=== PATIENT | female | born 1950 | race Caucasian/White ===

== ENCOUNTER 2017-10-11 10:00 | Outpatient (RCR) | payer MEDICARE, BC, SELFPAY ==
--- NOTE | 2017-09-07 10:57 | PT.OTN ---
Current Diagnoses Unspecified urinary incontinence (09/07/17) Transition note: On September 05, 2017 our therapy services consisting of Speech, Occupational, and Physical Therapy transitioned from the [employer] electronic documentation system to a new [employer] electronic documentation system.?? All documentation prior to September 05 can be found under [employer] saved data. From September 05 forward all medical record documentation will be in [employer] 6[employer]1.
--- NOTE | 2017-09-07 11:07 | PT.OTN ---
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 She has been getting massage and goes again on monday. Despite her back being out she notes her leakage has decreased and she is not using as many pads per day. -Patient Reported Progress Improving PT-OP-Q Treatments Start: 09/07/17 10:43 Freq: Status: Active Protocol: Activity Type Activity Date Activity User E-Sign Co-Sign Detail Recorded Client Recorded Date Recorded By Document 09/07/17 09:00 [facility] [email or web address] 09/07/17 11:04 [facility] 09/07/17 09:00 Therapeutic Exercises [Supine Exercises] 6 -Supine Exercise Name pelvic floor quick contractions with EMG biofeedback -Reps/Minutes 4 minutes 5 -Supine Exercise Name happy baby stretch -Side bilateral -Reps/Minutes 2 3 -Supine Exercise Name piriformis stretch -Side bilateral -Reps/Minutes 2 minutes each 2 -Supine Exercise Name hamstring stretch -Side bilateral -Reps/Minutes 2 min each 1 -Supine Exercise Name single knee to chest stretch -Side bilateral -Reps/Minutes 2 min Neuro Re-Education Treatment [Other Activities] 1 -Details Pelvic floor neuro re-ed in standing and supine with EMG biofeedback -Comments facilitating the pelvic floor without guarding from the abdominal wall and gluteals, supine pelvic floor long holds working on relaxed awareness of the pelvic floor and no gluteal activation. Added in urge deference technique using quick contractions of the levator ani Self-Care/Home Management Treatment [Education] -Other Education urge deference technique to help decrease sudden urge was reviewed and given to the patient [Activities] -Self-Care/Home Management Activities home exercise program and urge deference technique PT-OP-T Assessment and Plan Start: 09/07/17 10:43 Freq: Status: Active Protocol: Activity Type Activity Date Activity User E-Sign Co-Sign Detail Recorded Client Recorded Date Recorded By Document 09/07/17 09:00 [facility] [email or web address] 09/07/17 11:04 [facility] 09/07/17 09:00 Physical Therapy Assessment [Impairments] -Impairments Activity Tolerance Pain Posture Strength Tone [Assessment Summary] -Assessment Carol is noting a decrease in her symptoms of urinary incontinence. She did better today with pelvic floor endurance but had a decreased average on EMG biofeedback. She is also dealing with low back and sacral pain which has set her back a bit with strengthening her pelvic floor. I have added in stretches for the low back and sacral region and she is also getting massage which is helping. We worked today in standing and she is now able to contract her pelvic floor standing without substitution patterns. More work on the urge deference technique is needed. Physical Therapy Plan [Frequency and Duration] -Frequency of Treatment 1x/Week [Therapeutic Interventions] -Therapeutic Interventions Home Exercise Program Manual Therapy Neuromuscular Re-education Self-Care/Home Management Soft Tissue Mobilization Therapeutic Exercises -Modalities Biofeedback Hot Packs [Next Visit Focus/Plan] -Next Visit Plan work on urge deference technique and add in hip ER strengthening exercises and transverse abdominal stabilization
--- NOTE | 2017-09-14 10:41 | PT.OTN ---
Current Diagnoses Unspecified urinary incontinence (09/14/17) Physical Therapy Treatment Note PT-OP-A Visit Information Start: 09/07/17 11:04 Freq: Status: Active Protocol: Document 09/14/17 10:38 [facility] (Rec: 09/14/17 10:41 [facility] [email or web address]) Out-Patient Physical Therapy Visit Information Visit Information Visit Type Treatment Note Visit Start Time 09:00 Visit Stop Time 09:45 Visit Number 4 Number of MANAGER OF INTERNAL AUDIT Visits 0 PT-OP-C Subjective Start: 09/07/17 10:43 Freq: Status: Active Protocol: Document 09/14/17 09:59 [facility] (Rec: 09/14/17 10:01 [facility] [email or web address]) OP-PT Subjective Patient Comments Patient Comments Carol reports that she is doing better overall. She notes that Monday this past week she went all day without leaking. She has decreased her amount of pad use. PT-OP-I Pelvic Floor Start: 09/07/17 10:43 Freq: Status: Active Protocol: Document 09/07/17 09:00 [facility] (Rec: 09/07/17 11:04 [facility] [email or web address]) Pelvic Floor Assessment SEMG (uV) Baseline 2 Quick Contraction 10 10 Second Contraction 7 Recruitment Pattern Good Holding Good Stability of Hold Good SEMG Stability of Rest Fair Comments Pelvic Floor Comments Carol had a lower average pelvic floor contraction today but this was most likely due to her sacral pain these past few weeks. She actually was able to hold her contractions longer and I did talk to her about increasing her hold time for home this next week. PT-OP-Q Treatments Start: 09/07/17 10:43 Freq: Status: Active Protocol: Document 09/14/17 10:01 [facility] (Rec: 09/14/17 10:04 [facility] [email or web address]) Therapeutic Exercises Supine Exercises 7 Supine Exercise Name roll outs with theraband Resistance level 1 theraband Reps/Minutes 3 sets of 10 reps 6 Supine Exercise Name pelvic floor quick contractions with EMG biofeedback Reps/Minutes 4 minutes 5 Supine Exercise Name happy baby stretch Side bilateral Reps/Minutes 2 3 Supine Exercise Name piriformis stretch Side bilateral Reps/Minutes 2 minutes each 2 Supine Exercise Name hamstring stretch Side bilateral Reps/Minutes 2 min each 1 Supine Exercise Name single knee to chest stretch Side bilateral Reps/Minutes 2 min Neuro Re-Education Treatment Other Activities 1 Details Pelvic floor neuro re-ed in standing and supine with EMG biofeedback Comments facilitating the pelvic floor without guarding from the abdominal wall and gluteals, supine pelvic floor long holds working on relaxed awareness of the pelvic floor and no gluteal activation. Self-Care/Home Management Treatment Education Other Education urge deference reviewed and given to patient to work on at home. PT-OP-T Assessment and Plan Start: 09/07/17 10:43 Freq: Status: Active Protocol: Document 09/14/17 10:38 [facility] (Rec: 09/14/17 10:41 [facility] [email or web address]) Physical Therapy Assessment Assessment Summary Assessment Good decrease of both pad use as well as urinary incontinence symptoms. Added in roll outs today and Carol tolerated this well Physical Therapy Plan Frequency and Duration Frequency of Treatment 1x/Week Therapeutic Interventions Therapeutic Interventions Home Exercise Program Manual Therapy Neuromuscular Re-education Self-Care/Home Management Soft Tissue Mobilization Therapeutic Exercises Modalities Biofeedback Hot Packs Next Visit Focus/Plan Next Visit Plan begin standing pelvic floor exercises next visit
--- NOTE | 2017-09-21 17:13 | PT.OTN ---
Current Diagnoses Unspecified urinary incontinence (09/21/17) Physical Therapy Treatment Note PT-OP-A Visit Information Start: 09/07/17 11:04 Freq: Status: Active Protocol: Document 09/14/17 10:38 [facility] (Rec: 09/14/17 10:41 [facility] [email or web address]) Out-Patient Physical Therapy Visit Information Visit Information Visit Type Treatment Note Visit Start Time 09:00 Visit Stop Time 09:45 Visit Number 4 Number of TIMBER KILLER Visits 0 PT-OP-C Subjective Start: 09/07/17 10:43 Freq: Status: Active Protocol: Document 09/21/17 09:00 [facility] (Rec: 09/21/17 17:13 [facility] [email or web address]) OP-PT Subjective Patient Comments Patient Comments Carol reports she continues to note improvement and is not getting up at night to void. She also hasn't had any symptoms of a UTI in a long time PT-OP-I Pelvic Floor Start: 09/07/17 10:43 Freq: Status: Active Protocol: Document 09/07/17 09:00 [facility] (Rec: 09/07/17 11:04 [facility] [email or web address]) Pelvic Floor Assessment SEMG (uV) Baseline 2 Quick Contraction 10 10 Second Contraction 7 Recruitment Pattern Good Holding Good Stability of Hold Good SEMG Stability of Rest Fair Comments Pelvic Floor Comments Carol had a lower average pelvic floor contraction today but this was most likely due to her sacral pain these past few weeks. She actually was able to hold her contractions longer and I did talk to her about increasing her hold time for home this next week. PT-OP-Q Treatments Start: 09/07/17 10:43 Freq: Status: Active Protocol: Document 09/21/17 09:00 [facility] (Rec: 09/21/17 17:13 [facility] [email or web address]) Therapeutic Exercises Supine Exercises 8 Supine Exercise Name templates for eccentric control and coordination Reps/Minutes 8 min 4 Supine Exercise Name adductor squeeze with ball Side bilateral Reps/Minutes x 10 Comments hold 5 seconds 7 Supine Exercise Name roll outs with theraband Resistance level 1 theraband Reps/Minutes 3 sets of 10 reps 6 Supine Exercise Name pelvic floor quick contractions with EMG biofeedback Reps/Minutes 4 minutes 5 Supine Exercise Name happy baby stretch Side bilateral Reps/Minutes 2 Standing Exercises 2 Standing Exercise Name standing pelvic floor isolation Comments hold 5 second and rest 10 seconds 1 Standing Exercise Name sit to stand with pelvic floor engagement Reps/Minutes 10 reps PT-OP-T Assessment and Plan Start: 09/07/17 10:43 Freq: Status: Active Protocol: Document 09/21/17 09:00 [facility] (Rec: 09/21/17 17:13 [facility] [email or web address]) Physical Therapy Assessment Assessment Summary Assessment Carol tolerated all standing exercises today and no increase in low back pain symptoms. resting tone decreased to 0.0 uv on EMG biofeedback today Physical Therapy Plan Frequency and Duration Frequency of Treatment 1x/Week Plan of Care Start Date 08/17/17 Plan of Care End Date 11/15/17 Therapeutic Interventions Therapeutic Interventions Home Exercise Program Manual Therapy Neuromuscular Re-education Self-Care/Home Management Soft Tissue Mobilization Therapeutic Exercises Next Visit Focus/Plan Next Visit Plan review standing pelvic floor exercises
--- NOTE | 2017-09-28 09:54 | PT.OTN ---
Current Diagnoses Unspecified urinary incontinence (09/28/17) Physical Therapy Treatment Note PT-OP-A Visit Information Start: 09/07/17 11:04 Freq: Status: Active Protocol: Document 09/28/17 09:49 [facility] (Rec: 09/28/17 09:54 [facility] [email or web address]) Out-Patient Physical Therapy Visit Information Visit Information Visit Type Treatment Note Visit Start Time 09:00 Visit Stop Time 09:45 PT-OP-C Subjective Start: 09/07/17 10:43 Freq: Status: Active Protocol: Document 09/28/17 09:49 [facility] (Rec: 09/28/17 09:54 [facility] [email or web address]) OP-PT Subjective Patient Comments Patient Comments Carol reports she is going without a pad today for the first time. Urge deference technique has been working and she is excited with her progress Patient Reported Progress Improving PT-OP-I Pelvic Floor Start: 09/07/17 10:43 Freq: Status: Active Protocol: Document 09/07/17 09:00 [facility] (Rec: 09/07/17 11:04 [facility] [email or web address]) Pelvic Floor Assessment SEMG (uV) Baseline 2 Quick Contraction 10 10 Second Contraction 7 Recruitment Pattern Good Holding Good Stability of Hold Good SEMG Stability of Rest Fair Comments Pelvic Floor Comments Carol had a lower average pelvic floor contraction today but this was most likely due to her sacral pain these past few weeks. She actually was able to hold her contractions longer and I did talk to her about increasing her hold time for home this next week. PT-OP-Q Treatments Start: 09/07/17 10:43 Freq: Status: Active Protocol: Document 09/28/17 09:49 [facility] (Rec: 09/28/17 09:54 [facility] [email or web address]) Therapeutic Exercises Supine Exercises 9 Supine Exercise Name pelvic floor long holds Reps/Minutes 10 second hold with 10 second rest 4 Supine Exercise Name adductor squeeze with ball Side bilateral Reps/Minutes x 10 Comments hold 5 seconds 7 Supine Exercise Name roll outs with theraband Resistance level 1 theraband Reps/Minutes 3 sets of 10 reps 5 Supine Exercise Name happy baby stretch Side bilateral Reps/Minutes 2 3 Supine Exercise Name piriformis stretch Side bilateral Reps/Minutes 2 minutes each 2 Supine Exercise Name hamstring stretch Side bilateral Reps/Minutes 2 min each 1 Supine Exercise Name single knee to chest stretch Side bilateral Reps/Minutes 2 min Standing Exercises 3 Standing Exercise Name standing hip abduction Reps/Minutes 3 x 10 reps 2 Standing Exercise Name standing pelvic floor isolation Comments hold 5 second and rest 10 seconds 1 Standing Exercise Name sit to stand with pelvic floor engagement Reps/Minutes 10 reps PT-OP-T Assessment and Plan Start: 09/07/17 10:43 Freq: Status: Active Protocol: Document 09/28/17 09:49 [facility] (Rec: 09/28/17 09:54 [facility] [email or web address]) Physical Therapy Assessment Assessment Summary Assessment Excellent progress with decreased symptoms overall. Physical Therapy Plan Frequency and Duration Frequency of Treatment 1x/Week Plan of Care Start Date 08/17/17 Plan of Care End Date 11/15/17 Therapeutic Interventions Therapeutic Interventions Home Exercise Program Manual Therapy Neuromuscular Re-education Self-Care/Home Management Soft Tissue Mobilization Therapeutic Exercises Next Visit Focus/Plan Next Visit Plan Carol has 2 visits left on her referal prior to DC. Recheck pelvic floor manual assessment of strength next visit Please Sign and Return: I have reviewed this Plan of Care and certify that the skilled therapy services above are required to meet the patient???s needs. Physician Signature Date Printed Name and Credentials Clinical Instructor Signature Printed Name and Credentials
--- NOTE | 2017-10-11 12:13 | PT.OTN ---
Current Diagnoses Unspecified urinary incontinence (10/11/17) Physical Therapy Treatment Note PT-OP-A Visit Information Start: 09/07/17 11:04 Freq: Status: Active Protocol: Document 10/11/17 12:03 [facility] (Rec: 10/11/17 12:13 [facility] [email or web address]) Out-Patient Physical Therapy Visit Information Visit Information Visit Type Treatment Note Visit Start Time 09:00 Visit Stop Time 09:45 Total Visit Minutes 45 Visit Number 8 Number of WIG COMBER Visits 0 PT-OP-C Subjective Start: 09/07/17 10:43 Freq: Status: Active Protocol: Document 10/11/17 12:03 [facility] (Rec: 10/11/17 12:13 [facility] [email or web address]) OP-PT Subjective Patient Comments Patient Comments Overall Carol reports a great deal of progress with pelvic floor strengthening. She is leaking considerably less than she was. PT-OP-I Pelvic Floor Start: 09/07/17 10:43 Freq: Status: Active Protocol: Document 10/11/17 12:03 [facility] (Rec: 10/11/17 12:13 [facility] [email or web address]) Pelvic Floor Assessment SEMG (uV) Baseline 0 Quick Contraction 17.6 10 Second Contraction 8.6 Recruitment Pattern Good Relaxation Good Holding Good Stability of Hold Good SEMG Stability of Rest Good Contraction Ability Manual Muscle Testing Left 3 Manual Muscle Testing Right 4 Manual Muscle Testing Anterior 4 Manual Muscle Testing Posterior 4 Muscle Endurance (Seconds) 10 Number of Quick Contractions In 10 10 Seconds Comments Pelvic Floor Comments overall improved strength of the pelvic floor as initially Carol tested 2/5 MMT. Endurance has also improved and she is no longer substituting with her gluteals PT-OP-Q Treatments Start: 09/07/17 10:43 Freq: Status: Active Protocol: Document 10/11/17 12:03 [facility] (Rec: 10/11/17 12:13 [facility] [email or web address]) Therapeutic Exercises Supine Exercises 9 Supine Exercise Name pelvic floor long holds Reps/Minutes 10 second hold with 10 second rest 8 Supine Exercise Name templates for eccentric control and coordination Reps/Minutes 8 min 4 Supine Exercise Name adductor squeeze with ball Side bilateral Reps/Minutes x 10 Comments hold 5 seconds 7 Supine Exercise Name roll outs with theraband Resistance level 1 theraband Reps/Minutes 3 sets of 10 reps 6 Supine Exercise Name pelvic floor quick contractions with EMG biofeedback Reps/Minutes 4 minutes 5 Supine Exercise Name happy baby stretch Side bilateral Reps/Minutes 2 3 Supine Exercise Name piriformis stretch Side bilateral Reps/Minutes 2 minutes each 2 Supine Exercise Name hamstring stretch Side bilateral Reps/Minutes 2 min each 1 Supine Exercise Name single knee to chest stretch Side bilateral Reps/Minutes 2 min Standing Exercises 3 Standing Exercise Name standing hip abduction Reps/Minutes 3 x 10 reps 2 Standing Exercise Name standing pelvic floor isolation Comments hold 5 second and rest 10 seconds 1 Standing Exercise Name sit to stand with pelvic floor engagement Reps/Minutes 10 reps PT-OP-T Assessment and Plan Start: 09/07/17 10:43 Freq: Status: Active Protocol: Document 10/11/17 12:03 [facility] (Rec: 10/11/17 12:13 [facility] [email or web address]) Physical Therapy Assessment Progress Towards Goals Progress Towards Goals Goals Met Progress Comments Carol has made great overall progress. With MMT now she is 4/5 for levator ani except the left side which is 3/5. She is able to hold a contraction for 10 seconds in supine and up to 5 seconds standing. Carol has a much greater awareness of her pelvic floor and has the sensation now when she is viridiana. She is no longer waking up wet or dealing with urgency. She has some symptoms with leakage while walking but I feel this will continue to get better as she keeps working on her pelvic floor independently. She will be discharged at this time to a independent home program. Thank you for this referral Physical Therapy Plan Discharge Physical Therapy Discharge Reasons Goals Met Please Sign and Return: I have reviewed this Plan of Care and certify that the skilled therapy services above are required to meet the patient?s needs. Physician Signature Date Printed Name and Credentials Clinical Instructor Signature Printed Name and Credentials
== END 2017-10-25 16:13 ==
LOC: PHYS 10:00
PROVIDERS: Family Provider Nurse Practitioner Family; PCP Nurse Practitioner Family; Visit Provider Nurse Practitioner Family
DX: R32 Unspecified urinary incontinence (principal)
CPT/HCPCS: 97110; 97112

== ENCOUNTER → 2017-12-22 17:02 | Outpatient (CLI) | payer MEDICARE, BC, SELFPAY | PROVIDERS: Family Provider Nurse Practitioner Family; PCP Nurse Practitioner Family; Visit Provider Physician Assistant | DX: R39.9 Unspecified symptoms and signs involving the genitourinary system (principal) | CPT/HCPCS: 87077; 87086; 87186 ==

== ENCOUNTER → 2018-08-22 08:36 | Outpatient (CLI) | payer MEDICARE, BC, SELFPAY ==
--- NOTE | 2018-08-22 | DI.US.S_ITS ---
PROCEDURE: US CAROTID DOPPLER BI INDICATIONS: STENOSIS OF CAROTID ARTERY TECHNIQUE: Color and pulse Doppler interrogation was performed of both carotid systems, with image documentation and velocity measurements. COMPARISON: None. FINDINGS: Stenosis calculations are based on SRU (Society of Radiologists in Ultrasound) criteria. Right side: Brachial blood pressure: 136/69 mm Hg. Common carotid artery peak systolic velocity: 97 cm/sec. Internal carotid artery peak systolic velocity: 437 cm/sec. Internal carotid artery end diastolic velocity: 129 cm/sec. External carotid artery peak systolic velocity: 111 cm/sec. ICA/CCA peak systolic ratio: 4.5. Cerna scale imaging description: Heavy scattered plaque. Percent internal carotid artery stenosis: 70% stenosis to near occlusion. Vertebral artery: Flow direction is antegrade. Left side: Brachial blood pressure: 125/67 mm Hg. Common carotid artery peak systolic velocity: 93 cm/sec. Internal carotid artery peak systolic velocity: 338 cm/sec. Internal carotid artery end diastolic velocity: 102 cm/sec. External carotid artery peak systolic velocity: 219 cm/sec. ICA/CCA peak systolic ratio: 3.7. Cerna scale imaging description: Heavy scattered plaque Percent internal carotid artery stenosis: 70% stenosis to near occlusion. Vertebral artery: Flow direction is antegrade. IMPRESSION: 70% stenosis to near occlusion bilaterally, right greater than left. Dictated by: Dixon Green [facility] Interpreted: Mario Fay MD on 08/22/2018 at 11:29 Approved by: Mario Fay M.D. on 08/22/2018 at 11:45
== END ==
PROVIDERS: Family Provider Nurse Practitioner Family; PCP Nurse Practitioner Family; Visit Provider Internal Medicine
DX: I65.23 Occlusion and stenosis of bilateral carotid arteries (principal)
CPT/HCPCS: 93880

== ENCOUNTER → 2019-02-06 07:49 | Outpatient (CLI) | payer MEDICARE, BC, SELFPAY ==
[2019-02-06 08:49] LABS: Alanine Aminotransferase 24 IU/L (9-52); Albumin 4.2 g/dL (3.5-5.0); Albumin Globulin Ratio 1.6 (1.0-2.8); Alkaline Phosphatase 47 U/L (38-126); Aspartate Aminotransferase 25 IU/L (14-36); BUN Creatinine Ratio 23.3 (6-22); Bilirubin Total 0.6 mg/dL (0.2-1.3); Blood Urea Nitrogen 14 mg/dL (7-17); Calcium 9.4 mg/dL (8.4-10.2); Carbon Dioxide 25 mmol/L (22-32); Chloride 104 mmol/L (98-107); Cholesterol 161 mg/dL (140-199); Estimated Glomerular Filt Rate > 60.0 mL/min (>60); Globulin 2.6 g/dL (1.7-4.1); Glucose 104 mg/dL (80-110); HDL Cholesterol 75 mg/dL (40-60); HEMOLYSIS 53 (0-50); LDL Cholesterol Calculated 67 mg/dL (<100); Potassium 4.7 mmol/L (3.4-5.1); Sodium 139 mmol/L (137-145); Total Protein 6.8 g/dL (6.3-8.2); Triglycerides 96 mg/dL (35-150)
== END ==
PROVIDERS: PCP Internal Medicine; Visit Provider Internal Medicine
DX: I65.29 Occlusion and stenosis of unspecified carotid artery (principal); E78.5 Hyperlipidemia, unspecified
CPT/HCPCS: 36415; 80053; 80061

== ENCOUNTER → 2019-05-14 10:55 | Outpatient (CLI) | payer MEDICARE, BC, SELFPAY ==
--- NOTE | 2019-05-14 | DI.RAD.S_ITS ---
PROCEDURE: XR CHEST 2V INDICATIONS: COUGH/CONGESTION TECHNIQUE: 2 views of the chest were acquired. COMPARISON: None. FINDINGS: Surgical changes and devices: Bilateral breast implants with capsular calcifications. Lungs and pleura: Lungs are clear. No pleural effusions or pneumothorax. Mediastinum: Mediastinal contours are normal. Heart size is normal. Bones and chest wall: No suspicious bony abnormalities. Soft tissues appear unremarkable. IMPRESSION: No acute cardiopulmonary disease process. Dictated by: Alicia Rivera MD, PhD on 05/14/2019 at 12:13 Approved by: Alicia Rivera MD, PhD on 05/14/2019 at 12:13
== END ==
PROVIDERS: PCP Internal Medicine; Visit Provider Internal Medicine
DX: R05 Cough (principal); R09.89 Other specified symptoms and signs involving the circulatory and respiratory systems
CPT/HCPCS: 71046

== ENCOUNTER → 2019-05-31 10:49 | Outpatient (CLI) | payer MEDICARE, BC, SELFPAY ==
[2019-05-31 11:48] LABS: HEMOLYSIS < 15 (0-50); Iron 133 ug/dL (37-170)
[2019-05-31 12:00] LABS: Percent Iron Saturation 45 % (15-50); Total Iron Binding Capacity 294 ug/dL (265-497); Transferrin 233 mg/dL (206-381)
[2019-05-31 12:31] LABS: Folate 10.9 ng/mL (2.76-20.0); Vitamin B12 322 pg/mL (239-931)
== END ==
PROVIDERS: PCP Internal Medicine; Visit Provider Internal Medicine
DX: D55.9 Anemia due to enzyme disorder, unspecified (principal); R79.9 Abnormal finding of blood chemistry, unspecified; D46.9 Myelodysplastic syndrome, unspecified
CPT/HCPCS: 36415; 82607; 82746; 83540; 83550

== ENCOUNTER → 2019-09-10 10:28 | Outpatient (CLI) | payer MEDICARE, BC, SELFPAY ==
[2019-09-10 11:38] LABS: Add Manual Diff / Slide Review NO; Basophils Absolute Auto 100 /uL (0-100); Basophils Percent Auto 2.5 % (0-2); Eosinophils Absolute Auto 0 /uL (0-450); Eosinophils Percent Auto 0.9 % (2-4); Hematocrit 37.1 % (36-46); Hemoglobin 12.9 g/dL (12.0-16.0); Lymphocytes Absolute Auto 1600 /uL (1100-4500); Lymphocytes Percent Auto 30.6 % (25-40); Mean Corpuscular HGB Conc 34.7 % (30-36); Mean Corpuscular Hemoglobin 34.4 PG (26-34); Mean Corpuscular Volume 98.9 fL (80-100); Monocytes Absolute Auto 500 /uL (0-900); Monocytes Percent Auto 9.3 % (3-14); Neutrophils Absolute Auto 3000 /uL (1500-7000); Neutrophils Percent Auto 56.7 % (50-75); Red Blood Cell Count 3.75 X10^6/uL (4.0-5.2); Red Cell Distribution Width 22.2 % (11.6-14.8); White Blood Cell Count 5.3 X10^3/uL (4.5-11.0)
[2019-09-10 12:14] LABS: Platelet Count 154 X10^3/uL (150-400); Platelet Estimate Adequate on smear
[2019-09-10 12:15] LABS: Anisocytosis 2+
== END ==
PROVIDERS: PCP Internal Medicine; Referring Provider Internal Medicine; Visit Provider Internal Medicine
DX: D55.9 Anemia due to enzyme disorder, unspecified (principal); R79.9 Abnormal finding of blood chemistry, unspecified; D46.9 Myelodysplastic syndrome, unspecified
CPT/HCPCS: 36415; 85025

== ENCOUNTER → 2019-10-17 10:54 | Outpatient (CLI) | payer MEDICARE, BC, SELFPAY ==
[2019-10-17 11:29] LABS: Alanine Aminotransferase 20 IU/L (<35); Albumin 4.1 g/dL (3.5-5.0); Albumin Globulin Ratio 1.6 (1.0-2.8); Alkaline Phosphatase 54 U/L (38-126); Aspartate Aminotransferase 24 IU/L (14-36); BUN Creatinine Ratio 16.2 (6-22); Bilirubin Total 0.5 mg/dL (0.2-1.3); Blood Urea Nitrogen 12 mg/dL (7-17); Calcium 9.1 mg/dL (8.4-10.2); Carbon Dioxide 24 mmol/L (22-32); Chloride 106 mmol/L (98-107); Cholesterol 134 mg/dL (140-199); Estimated Glomerular Filt Rate > 60.0 mL/min (>60); Globulin 2.5 g/dL (1.7-4.1); Glucose 103 mg/dL (80-110); HDL Cholesterol 57 mg/dL (40-60); HEMOLYSIS < 15 (0-50); LDL Cholesterol Calculated 59 mg/dL (<100); Potassium 4.2 mmol/L (3.4-5.1); Sodium 138 mmol/L (137-145); Total Protein 6.6 g/dL (6.3-8.2); Triglycerides 90 mg/dL (35-150)
[2019-10-17 12:04] LABS: Free T4, Direct Thyroxine 1.65 ng/dL (0.78-2.19)
[2019-10-17 12:17] LABS: Thyroid Stimulating Hormone 0.28 uIU/mL (0.47-4.68)
[2019-10-18 06:38] LABS: Triiodothyronine T3 Total 96 ng/dL (71-180)
== END ==
PROVIDERS: PCP Internal Medicine; Referring Provider Internal Medicine; Visit Provider Internal Medicine
DX: E78.5 Hyperlipidemia, unspecified (principal); E03.9 Hypothyroidism, unspecified; I65.29 Occlusion and stenosis of unspecified carotid artery
CPT/HCPCS: 36415; 80053; 80061; 84439; 84443; 84480

== ENCOUNTER → 2019-10-24 15:11 | Outpatient (ROUT) | payer MEDICARE, BC, SELFPAY | PROVIDERS: PCP Internal Medicine; Visit Provider Nurse Practitioner Family | DX: N39.0 Urinary tract infection, site not specified (principal) | CPT/HCPCS: 87077; 87086; 87186 ==

== ENCOUNTER → 2020-01-10 09:23 | Outpatient (CLI) | payer MEDICARE, BC, SELFPAY | PROVIDERS: PCP Internal Medicine; Visit Provider Physician Assistant | DX: N39.0 Urinary tract infection, site not specified (principal) | CPT/HCPCS: 87077; 87086; 87186 ==

== ENCOUNTER → 2020-02-04 13:53 | Outpatient (CLI) | payer MEDICARE, BC, SELFPAY | PROVIDERS: PCP Internal Medicine; Visit Provider Physician Assistant | DX: N30.01 Acute cystitis with hematuria (principal) | CPT/HCPCS: 87077; 87086; 87186 ==

== ENCOUNTER → 2020-06-04 11:51 | Outpatient (CLI) | payer MEDICARE, BC, SELFPAY | PROVIDERS: PCP Internal Medicine; Visit Provider Nurse Practitioner | DX: R30.0 Dysuria (principal) | CPT/HCPCS: 87077; 87086; 87186 ==

== ENCOUNTER → 2020-12-12 15:26 | Outpatient (CLI) | payer MEDICARE, BC, SELFPAY | PROVIDERS: PCP Internal Medicine; Referring Provider Physician Assistant; Visit Provider Physician Assistant | DX: N34.3 Urethral syndrome, unspecified (principal) | CPT/HCPCS: 87077; 87086; 87147; 87186 ==

== ENCOUNTER → 2021-02-01 09:29 | Outpatient (CLI) | payer MEDICARE, BC, SELFPAY ==
[2021-02-01 12:20] LABS: COVID19 -Nasal RAPID Negative (Negative)
== END ==
PROVIDERS: PCP Internal Medicine; Visit Provider Nurse Practitioner Family
DX: Z20.822 Contact with and (suspected) exposure to COVID-19 (principal); Z01.812 Encounter for preprocedural laboratory examination
CPT/HCPCS: 87635; C9803

== ENCOUNTER 2021-02-02 10:50 | Day surgery (SDC) | payer MEDICARE, BC, SELFPAY ==
--- NOTE | 2021-02-02 | PATH_ITS ---
[facility] Accession Number: [id number] . 01 Material submitted: . sigmoid colon - SIGMOID POLYP . 02 Diagnosis: Sigmoid Colon, Polyp, Biopsy: Hyperplastic polyp. MRV 02/04/2021 1305 Local . 02 Electronically signed: . Edwige Gonzalez MD, Pathologist NPI- [id number] . 01 Gross description: . SIGMOID POLYP: Received in formalin is 1 fragment(s) of sparks, soft tissue measuring 0.4 x 0.3 x 0.1 cm submitted entirely in 1 cassette(s) /QBJ 02/03/2021 0728 Local . 02 Pathologist provided ICD-10: K63.5 . 02 CPT . 376769 Performed at: 01 [facility] [address] [id number] MD Denzel Lo MD Phone: [phone] Performed at: 02 [facility] [address] [place], [place] [id number] MD Edwige Gonzalez MD Phone: [phone]
[2021-02-02 12:14] VITALS: BP 126/60; PULSE 63; RESP 16; TEMP 37; O2SAT 98
[2021-02-02 12:21] VITALS: BMI 25.4
[2021-02-02] MEDS: SODIUM CHLORIDE 0.9% 1,000 ML 84 ML IV (12:30)
--- NOTE | 2021-02-02 12:38 | PM.HP.1 ---
History of Present Illness History of Present Illness Date Patient Seen: 02/02/21 Time Patient Seen: 12:38 Chief complaint: SDC Narrative: Here for screening colonoscopy. Asymptomatic. Patient History Medical History Anxiety Insomnia Obstructive sleep apnea Snoring Urinary incontinence in female Family & Social History Tobacco & Substance use: Smoking Status Former smoker alcohol intake current Meds Home Medications and Allergies Home Medications Medication Instructions Recorded Confirmed Type cholecalciferol (vitamin D3) 1,250 50,000 unit PO QWEEK #0 05/31/17 12/12/20 History mcg (50,000 unit) capsule coenzyme Q10 100 mg capsule (Co 100 mg PO #0 05/31/17 12/12/20 History Q-10) levothyroxine 100 mcg tablet 100 mcg PO QAM #0 05/31/17 12/12/20 History (Synthroid) aspirin 81 mg tablet,delayed 81 mg PO DAILY 01/02/19 12/12/20 History release (Adult Low Dose Aspirin) atorvastatin 40 mg tablet 40 mg PO DAILY 01/02/19 12/12/20 History cholecalciferol (vitamin D3) 50 2,000 unit PO DAILY 01/02/19 12/12/20 History mcg (2,000 unit) capsule Allergies Allergy/AdvReac Type Severity Reaction Status Date / Time codeine [CODEINE] Allergy Unknown Verified 12/12/20 15:48 Sulfa (Sulfonamide Allergy Unknown Verified 12/12/20 15:48 Antibiotics) [SULFA (SULFONAMIDE ANTIBIOTICS)] cephalexin Allergy Itching Verified 12/12/20 15:48 contrast Allergy Unknown mild Uncoded 12/12/20 15:48 hives,itching Review of Systems Review of Systems ROS: Yes All systems reviewed with the patient and are negative except as otherwise documented Exam Vital Signs (past 8 hours): - 02/02/21 12:14 Temperature 98.6 F Pulse Rate 63 Respiratory Rate 16 Blood Pressure 126/60 Pulse Oximetry 98 Oxygen Delivery Method Room Air Const General: cooperative and comfortable Orientation: alert HENMT Head: normocephalic Ears: external ears normal Nose: external nose normal Face and sinus: normal facial exam Mouth: oral mucosae normal Eyes General: appearance normal, both eyes and all related structures Neck Neck: normal visual inspection Chest Chest: normal inspection of the chest Resp Effort & Inspection: normal respiratory effort Auscultation: clear to auscultation bilaterally Cardio Rate: regular rate Rhythm: regular rhythm Heart Sounds: no murmurs GI Inspection: normal to inspection Palpation: soft and No tender Auscultation: normal bowel sounds Skin General: no rashes or lesions noted and No jaundice Neuro General: patient alert and moves all extremities Cognition: normal cognition Speech: speech normal Extrem General: no pedal edema Psych Appearance: grossly normal Assessment & Plan Assessment & Plan narrative: Here for colon cancer screening. Colonoscopy is pursued today. Time Spent With Patient Critical Care time: I spent a total of [] minutes of critical care time on this patient's care today; this time is exclusive of procedural time.
--- NOTE | 2021-02-02 12:39 | PM.PREOP ---
Pre-operative Note COVID-19 COVID-19 status: Negative Result date/Date tested (Pos, Neg/Pending): 02/01/21 Interval Note History & Physical reviewed/Exam performed by Physician: Yes Changes to H&P: No ASA Class (for procedural sedation): II
--- NOTE | 2021-02-02 13:19 | P.OP.ENDO_ITS ---
Operative Date/Time/Diagnoses Date of procedure: 02/02/21 Time of procedure: 13:19 Pre-op diagnosis: Colon cancer screening Post-op diagnosis: same Procedure & Clinicians Study performed: Colonoscopy with cold forceps polypectomy Same procedure as scheduled: Yes Indications: Colon cancer screening Surgeon: Ascencion Aragon Procedure Notes SCOAP/Timeout: Done Procedure in detail: After the risks and benefits were explained, written and verbal informed consent was obtained. The patient was brought into the procedure room and placed into the left lateral decubitus position. Please see nurse media reconciliation specialist notes. Rectal examination was accomplished. The scope was introduced into the patient and advanced under direct visualization to the cecum as identified by the appendiceal orifice and ileocecal valve. The scope was slowly withdrawn to carefully examine the mucosa for any defects or lesions. Comprehensive imaging was accomplished throughout the rectum including the dentate line. The colon was decompressed, the scope was then removed from the patient who tolerated the procedure well. Bowel prep adequate Adult colonoscope Scope withdrawal time: 12 minutes Sedation minutes: 23 Specimen(s): none sent Complications: none Impression: Patient had diverticulosis throughout the sigmoid. There were a few scattered classic diminutive benign-appearing hyperplastic polyps that were in the rectosigmoid region we left these alone. There is a diminutive polyp in the sigmoid colon that was removed with cold forceps. This perhaps was 3 mm in greatest dimension. No other significant mucosal pathology appreciated throughout. Mild internal hemorrhoids noted. Endoscopic diagnosis 1. Diverticulosis 2. Grade 1 internal hemorrhoids 3. Diminutive sigmoid polyp Post-procedure Plan for aftercare: Await histopathology. If this polyp is adenomatous, repeat colonoscopy will be suggested for 5 years time. Otherwise a 10 year follow-up exam would be reasonable to consider. Disposition: PACU
[2021-02-02 13:22] VITALS: BP 110/54; PULSE 70; RESP 12; TEMP 36.3; O2SAT 99
[2021-02-02 13:27] VITALS: BP 123/47; PULSE 71; RESP 12; O2SAT 99
[2021-02-02 13:32] VITALS: BP 125/41; PULSE 71; RESP 11; O2SAT 98
== END 2021-02-02 13:54 | disposition home or self-care (01) ==
PROVIDERS: PCP Physician Assistant; Referring Provider Internal Medicine Gastroenterology; Visit Provider Internal Medicine Gastroenterology
PROC: 0DJD8ZZ Inspection of Lower Intestinal Tract, Via Natural or Artificial Opening Endoscopic (ICD-10-PCS; CPT 45378; principal; 2021-02-02 12:00)
DX: Z12.11 Encounter for screening for malignant neoplasm of colon (principal); K57.30 Diverticulosis of large intestine without perforation or abscess without bleeding; K64.0 First degree hemorrhoids; G47.33 Obstructive sleep apnea (adult) (pediatric); F41.9 Anxiety disorder, unspecified; R32 Unspecified urinary incontinence; K63.5 Polyp of colon
CPT/HCPCS: 45380; J2704

== ENCOUNTER → 2022-01-28 11:56 | Outpatient (CLI) | payer MEDICARE, SELFPAY ==
[2022-01-28 13:36] LABS: Add Manual Diff / Slide Review NO; Basophils Absolute Auto 100 /uL (0-100); Basophils Percent Auto 1.5 % (0-2); Eosinophils Absolute Auto 100 /uL (0-450); Eosinophils Percent Auto 1.6 % (2-4); Hematocrit 33.8 % (36-46); Hemoglobin 11.6 g/dL (12.0-16.0); Lymphocytes Absolute Auto 2100 /uL (1100-4500); Lymphocytes Percent Auto 46.1 % (25-40); Mean Corpuscular HGB Conc 34.5 % (30-36); Mean Corpuscular Hemoglobin 30.6 PG (26-34); Mean Corpuscular Volume 88.9 fL (80-100); Monocytes Absolute Auto 400 /uL (0-900); Neutrophils Absolute Auto 2000 /uL (1500-7000); Neutrophils Percent Auto 42.8 % (50-75); Red Cell Distribution Width 29.4 % (11.6-14.8); White Blood Cell Count 4.6 X10^3/uL (4.5-11.0)
[2022-01-28 14:05] LABS: Alanine Aminotransferase 18 IU/L (<35); Albumin 4.1 g/dL (3.5-5.0); Albumin Globulin Ratio 1.6 (1.0-2.8); Alkaline Phosphatase 45 U/L (38-126); Aspartate Aminotransferase 24 IU/L (14-36); BUN Creatinine Ratio 12.7 (6-22); Bilirubin Total 0.7 mg/dL (0.2-1.3); Blood Urea Nitrogen 9 mg/dL (7-17); Calcium 8.6 mg/dL (8.4-10.2); Carbon Dioxide 27 mmol/L (22-32); Chloride 103 mmol/L (98-107); Cholesterol 146 mg/dL (140-199); Estimated Glomerular Filt Rate > 60 mL/min (>60); Globulin 2.5 g/dL (1.7-4.1); Glucose 85 mg/dL (80-110); HDL Cholesterol 68 mg/dL (40-60); HEMOLYSIS < 15 (0-50); LDL Cholesterol Calculated 65 mg/dL (<100); Magnesium 1.9 mg/dL (1.6-2.3); Potassium 4.2 mmol/L (3.4-5.1); Sodium 136 mmol/L (137-145); Total Protein 6.6 g/dL (6.3-8.2); Triglycerides 66 mg/dL (35-150)
[2022-01-28 15:04] LABS: Dimorphic RBC PRESENT; Platelet Count 174 X10^3/uL (150-400)
[2022-01-28 15:05] LABS: Anisocytosis 2+
[2022-01-28 15:08] LABS: Folate > 20.0 ng/mL (2.76-20.0); Vitamin B12 334 pg/mL (239-931)
== END ==
PROVIDERS: PCP Family Medicine; Referring Provider Family Medicine; Visit Provider Family Medicine
DX: R25.2 Cramp and spasm (principal); R79.9 Abnormal finding of blood chemistry, unspecified; E78.5 Hyperlipidemia, unspecified; E56.9 Vitamin deficiency, unspecified; D46.9 Myelodysplastic syndrome, unspecified; D55.9 Anemia due to enzyme disorder, unspecified
CPT/HCPCS: 36415; 80053; 80061; 82607; 82746; 83735; 85025

== ENCOUNTER → 2022-02-17 09:25 | Outpatient (CLI) | payer MEDICARE, SELFPAY ==
[2022-02-17 10:05] LABS: Appearance Urine UA SL CLOUDY; Bilirubin Urine UA NEGATIVE (NEGATIVE); Color Urine UA YELLOW; Glucose Urine UA NEGATIVE (Negative); Ketones Urine UA NEGATIVE (NEGATIVE); Leukocyte Esterase Urine UA 2+ (NEGATIVE); Nitrite Urine UA POSITIVE (Negative); Occult Blood Urine UA TRACE-INTACT (Negative); Protein Urine UA NEGATIVE (Negative); Specific Gravity Urine UA <=1.005 (1.000-1.035); Urobilinogen Urine UA 0.2 E.U./dL (0.2); pH Urine UA 6.5 (4.5-8.0)
[2022-02-17 10:11] LABS: Amorphous Sediment Urine 1+; Bacteria Urine Many (>30); Culture Indicated Urine Specimen Cultured; RBC Urine 0-1/HPF (0-5/HPF); WBC Urine >100/HPF (0-5/HPF)
== END ==
PROVIDERS: PCP Family Medicine; Referring Provider Family Medicine; Visit Provider Family Medicine
DX: N39.0 Urinary tract infection, site not specified (principal)
CPT/HCPCS: 81001; 87077; 87086; 87147; 87186

== ENCOUNTER → 2022-04-20 12:28 | Outpatient (ROUT) | payer MEDICARE, SELFPAY ==
[2022-04-20 13:04] LABS: COVID19 -Nasal RAPID Negative (Negative)
== END ==
PROVIDERS: PCP Family Medicine; Visit Provider Family Medicine
DX: Z20.822 Contact with and (suspected) exposure to COVID-19 (principal)
CPT/HCPCS: 87635

== ENCOUNTER → 2022-06-06 15:09 | Outpatient (ROUT) | payer MEDICARE, SELFPAY | PROVIDERS: PCP Family Medicine; Visit Provider Family Medicine | DX: N39.0 Urinary tract infection, site not specified (principal) | CPT/HCPCS: 87077; 87086; 87186 ==

== ENCOUNTER → 2022-07-13 07:50 | Outpatient (CLI) | payer MEDICARE, SELFPAY ==
[2022-07-13 09:04] LABS: Add Manual Diff / Slide Review NO; Basophils Absolute Auto 100 /uL (0-100); Basophils Percent Auto 1.3 % (0-2); Eosinophils Absolute Auto 200 /uL (0-450); Eosinophils Percent Auto 3.2 % (2-4); Hematocrit 36.4 % (36-46); Hemoglobin 11.9 g/dL (12.0-16.0); Lymphocytes Absolute Auto 1700 /uL (1100-4500); Mean Corpuscular HGB Conc 32.8 % (30-36); Mean Corpuscular Hemoglobin 28.7 PG (26-34); Mean Corpuscular Volume 87.5 fL (80-100); Monocytes Absolute Auto 400 /uL (0-900); Monocytes Percent Auto 7.5 % (3-14); Neutrophils Absolute Auto 2600 /uL (1500-7000); Platelet Count 191 X10^3/uL (150-400); Red Blood Cell Count 4.16 X10^6/uL (4.0-5.2); Red Cell Distribution Width 28.9 % (11.6-14.8); White Blood Cell Count 4.9 X10^3/uL (4.5-11.0)
[2022-07-13 09:13] LABS: Hemoglobin A1C% w Est Avg Glu 5.3 % (4.0-6.0)
[2022-07-13 09:16] LABS: Anisocytosis 2+; Hypochromasia 1+; Target Cells 1+
[2022-07-13 09:25] LABS: Alanine Aminotransferase 19 IU/L (<35); Albumin 4.2 g/dL (3.5-5.0); Albumin Globulin Ratio 1.6 (1.0-2.8); Alkaline Phosphatase 54 U/L (38-126); Aspartate Aminotransferase 29 IU/L (14-36); Bilirubin Total 0.5 mg/dL (0.2-1.3); Blood Urea Nitrogen 13 mg/dL (7-17); Calcium 8.6 mg/dL (8.4-10.2); Carbon Dioxide 28 mmol/L (22-32); Chloride 104 mmol/L (98-107); Cholesterol 166 mg/dL (140-199); Estimated Glomerular Filt Rate > 60 mL/min (>60); Globulin 2.6 g/dL (1.7-4.1); Glucose 93 mg/dL (80-110); HDL Cholesterol 81 mg/dL (40-60); HEMOLYSIS < 15 (0-50); LDL Cholesterol Calculated 73 mg/dL (<100); Potassium 4.4 mmol/L (3.4-5.1); Sodium 138 mmol/L (137-145); Total Protein 6.8 g/dL (6.3-8.2); Triglycerides 59 mg/dL (35-150)
[2022-07-13 09:27] LABS: HEMOLYSIS < 15 (0-50); Iron 102 ug/dL (37-170)
[2022-07-13 09:38] LABS: Percent Iron Saturation 34 % (15-50); Total Iron Binding Capacity 296 ug/dL (265-497); Transferrin 218 mg/dL (206-381)
[2022-07-13 09:54] LABS: TSH w/ Reflex to FT4 4.43 uIU/mL (0.47-4.68)
[2022-07-13 09:58] LABS: Ferritin 62 ng/mL (11-264)
[2022-07-14 23:25] LABS: Triiodothyronine T3 Total 82 ng/dL (71-180)
== END ==
PROVIDERS: PCP Family Medicine; Referring Provider Family Medicine; Visit Provider Family Medicine
DX: R73.03 Prediabetes (principal); D46.9 Myelodysplastic syndrome, unspecified; E78.5 Hyperlipidemia, unspecified; E03.9 Hypothyroidism, unspecified
CPT/HCPCS: 36415; 80053; 80061; 82728; 83036; 83540; 83550; 84443; 84480; 85025

== ENCOUNTER → 2022-07-19 12:03 | Outpatient (CLI) | payer MEDICARE, SELFPAY ==
--- NOTE | 2022-07-19 | DI.MRI.S_ITS ---
BREAST MRI OF BOTH BREASTS: 07/19/2022 CLINICAL: Possible ruptured implant. No prior exams were available for comparison. INDICATIONS: SUSPECTED BREAST IMPLANT RUPTURE TECHNIQUE: The patient was placed prone in a dedicated breast imaging coil. Axial bilateral STIR, axial and sagittal STIR with water saturation (silicone selective), sagittal T2 fast spin echo with fat saturation, and coronal T2 fast spin echo without fat saturation sequences were acquired. FINDINGS: Image quality: Excellent. Right breast: A retroglandular silicone implant is present. Intracapsular rupture is seen with silicone between the internal and external capsules. No extracapsular rupture is seen. No significant internal mammary or axillary lymphadenopathy. Left breast: A retroglandular silicone implant is present. There is intracapsular and extracapsular rupture. Free extracapsular silicone is seen in the breast along the superior aspect of the implant as well as along the inferolateral and posterior aspect of the implant. There is nonspecific soft tissue edema throughout the left breast. No significant internal mammary or axillary lymphadenopathy. IMPRESSION: BENIGN 1. Extracapsular rupture of a left retroglandular silicone implant with extravasation of free silicone in the left breast. Diffuse soft tissue edema in the left breast is nonspecific and may be reactive. 2. Intracapsular rupture of the right breast retro glandular silicone implant. No extravasation of free silicone into the right breast is seen. BIRADS 2: Benign. A 1 year screening mammogram is recommended. This exam was interpreted at Station ID: [id number]. Electronically Signed By: Parish Figueroa M.D. ar/:07/19/2022 14:05:53 letter sent: Clinical Evaluation ACR BI-RADS Category 2: Benign Finding(s) [id number]
== END ==
PROVIDERS: PCP Family Medicine; Referring Provider Family Medicine; Visit Provider Family Medicine
DX: S29.9XXA Unspecified injury of thorax, initial encounter (principal); T85.43XA Leakage of breast prosthesis and implant, initial encounter; Z98.82 Breast implant status; W19.XXXA Unspecified fall, initial encounter
CPT/HCPCS: 77047

== ENCOUNTER → 2022-10-22 07:09 | Outpatient (CLI) | payer MEDICARE, SELFPAY | PROVIDERS: PCP Family Medicine; Visit Provider Physician Assistant | DX: R30.0 Dysuria (principal) | CPT/HCPCS: 87077; 87086; 87186 ==

== ENCOUNTER → 2022-12-02 07:23 | Outpatient (CLI) | payer MEDICARE, SELFPAY | PROVIDERS: PCP Family Medicine; Visit Provider Physician Assistant | DX: N39.0 Urinary tract infection, site not specified (principal) | CPT/HCPCS: 87077; 87086; 87186 ==

== ENCOUNTER → 2023-01-15 09:40 | Outpatient (CLI) | payer MEDICARE, SELFPAY | PROVIDERS: PCP Family Medicine; Visit Provider Registered Nurse | DX: R10.9 Unspecified abdominal pain (principal) | CPT/HCPCS: 87077; 87086; 87186 ==

== ENCOUNTER → 2023-06-12 15:10 | Outpatient (CLI) | payer MEDICARE, SELFPAY | PROVIDERS: PCP Family Medicine; Visit Provider Registered Nurse | DX: N39.0 Urinary tract infection, site not specified (principal) | CPT/HCPCS: 87077; 87086; 87186 ==

== ENCOUNTER → 2023-09-07 07:28 | Outpatient (CLI) | payer MEDICARE, SELFPAY ==
[2023-09-07 08:39] LABS: Add Manual Diff / Slide Review NO; Basophils Absolute Auto 100 /uL (0-100); Eosinophils Absolute Auto 100 /uL (0-450); Eosinophils Percent Auto 2.4 % (2-4); Hematocrit 33.9 % (36-46); Hemoglobin 11.3 g/dL (12.0-16.0); Lymphocytes Absolute Auto 1900 /uL (1100-4500); Lymphocytes Percent Auto 43.9 % (25-40); Mean Corpuscular HGB Conc 33.4 % (30-36); Mean Corpuscular Hemoglobin 26.8 PG (26-34); Mean Corpuscular Volume 80.4 fL (80-100); Monocytes Absolute Auto 300 /uL (0-900); Monocytes Percent Auto 7.6 % (3-14); Neutrophils Absolute Auto 1900 /uL (1500-7000); Neutrophils Percent Auto 44.1 % (50-75); Platelet Count 215 X10^3/uL (150-400); Red Blood Cell Count 4.21 X10^6/uL (4.0-5.2); White Blood Cell Count 4.3 X10^3/uL (4.5-11.0)
[2023-09-07 09:00] LABS: Anisocytosis 2+; Target Cells 1+
[2023-09-07 09:19] LABS: HEMOLYSIS < 15 (0-50); Iron 168 ug/dL (37-170)
[2023-09-07 09:24] LABS: Alanine Aminotransferase 15 IU/L (<35); Albumin 4.4 g/dL (3.5-5.0); Albumin Globulin Ratio 2.1 (1.0-2.8); Alkaline Phosphatase 49 U/L (38-126); Aspartate Aminotransferase 21 IU/L (14-36); BUN Creatinine Ratio 16.9 (6-22); Bilirubin Total 0.7 mg/dL (0.2-1.3); Blood Urea Nitrogen 12 mg/dL (7-17); Calcium 9.1 mg/dL (8.4-10.2); Carbon Dioxide 27 mmol/L (22-32); Chloride 106 mmol/L (98-107); Cholesterol 155 mg/dL (140-199); Estimated Glomerular Filt Rate > 60 mL/min (>60); Globulin 2.1 g/dL (1.7-4.1); Glucose 84 mg/dL (80-110); HDL Cholesterol 75 mg/dL (40-60); HEMOLYSIS < 15 (0-50); LDL Cholesterol Calculated 66 mg/dL (<100); Potassium 4.3 mmol/L (3.4-5.1); Sodium 137 mmol/L (137-145); Total Protein 6.5 g/dL (6.3-8.2); Triglycerides 69 mg/dL (35-150)
[2023-09-07 09:32] LABS: Percent Iron Saturation 66 % (15-50); Total Iron Binding Capacity 256 ug/dL (265-497); Transferrin 195 mg/dL (206-381)
[2023-09-07 09:47] LABS: Vitamin D 25 Hydroxy (D3) 71.2 ng/mL (30.0-100.0)
[2023-09-07 09:52] LABS: TSH w/ Reflex to FT4 2.87 uIU/mL (0.47-4.68)
[2023-09-07 09:59] LABS: Ferritin 71 ng/mL (11-264)
[2023-09-07 10:30] LABS: Folate > 20.0 ng/mL (2.76-20.0); Vitamin B12 394 pg/mL (239-931)
== END ==
PROVIDERS: PCP Nurse Practitioner Family; Referring Provider Nurse Practitioner Family; Visit Provider Nurse Practitioner Family
DX: D64.9 Anemia, unspecified (principal); E03.9 Hypothyroidism, unspecified; E55.9 Vitamin D deficiency, unspecified; E78.5 Hyperlipidemia, unspecified
CPT/HCPCS: 36415; 80053; 80061; 82306; 82607; 82728; 82746; 83540; 83550; 84443; 85025

== ENCOUNTER → 2023-09-12 10:37 | Outpatient (CLI) | payer MEDICARE, SELFPAY ==
--- NOTE | 2023-09-12 | DI.CT.S_ITS ---
PROCEDURE: CT LUNG LOW DOSE SCREENING INDICATIONS: Nicotine dependence, cigarettes, uncomplicated TECHNIQUE: Noncontrast 2.0-2.5 mm thick sections acquired from the pulmonary apices to the posterior costophrenic angles. 7 mm thick axial MIP, and 5 mm coronal and sagittal reformats were then acquired. For radiation dose reduction, the following was used: automated exposure control, adjustment of mA and/or kV according to patient size. COMPARISON: [facility], CT, CHEST/ABDOMEN/PELVIS WITHOUT CONTRAST, 06/08/2009, 10:04. FINDINGS: Image quality: Diagnostic. Lower Neck: No enlarged lymph nodes. Thyroid: No thyroid nodules which require sonographic follow up, per consensus guidelines. Axillae: No enlarged lymph nodes. Chest Wall: Unremarkable. Bones: Unremarkable. Lungs and Pleura: No pneumothorax or pleural effusions. There is moderate centrilobular emphysema with an apical predominance. No suspicious pulmonary nodules which require follow-up. No acute airspace opacities. Heart: Heart size is normal. No pericardial effusion. Thoracic Vessels: The aorta and pulmonary arteries demonstrate normal size. Scattered atheromatous calcifications are present within the aortic arch. Mediastinum and Lynda: No enlarged lymph nodes. Esophagus: No wall thickening. No hiatal hernia. Upper Abdomen: Visualized upper abdomen solid organs and bowel loops appear normal. IMPRESSION: No suspicious pulmonary nodules. LUNG-RADS 1; continued annual screening, if eligible. Clinically Significant Non-pulmonary Findings: None. Dictated by: Margarita Fraser M.D. on 09/12/2023 at 12:28 Approved by: Margarita Fraser M.D. on 09/12/2023 at 12:32
== END ==
PROVIDERS: PCP Nurse Practitioner Family; Referring Provider Nurse Practitioner Family; Visit Provider Nurse Practitioner Family
DX: Z12.2 Encounter for screening for malignant neoplasm of respiratory organs (principal); F17.210 Nicotine dependence, cigarettes, uncomplicated
CPT/HCPCS: 71271

== ENCOUNTER → 2023-11-27 07:07 | Outpatient (CLI) | payer MEDICARE, SELFPAY ==
[2023-11-27 08:15] LABS: Add Manual Diff / Slide Review SLIDE REVIEW; Basophils Absolute Auto 100 /uL (0-100); Basophils Percent Auto 2.6 % (0-2); Eosinophils Absolute Auto 100 /uL (0-450); Eosinophils Percent Auto 3.3 % (2-4); Hematocrit 35.5 % (36-46); Hemoglobin 11.6 g/dL (12.0-16.0); Lymphocytes Absolute Auto 2000 /uL (1100-4500); Lymphocytes Percent Auto 46.9 % (25-40); Mean Corpuscular HGB Conc 32.6 % (30-36); Mean Corpuscular Hemoglobin 26.3 PG (26-34); Mean Corpuscular Volume 80.6 fL (80-100); Monocytes Absolute Auto 400 /uL (0-900); Monocytes Percent Auto 8.1 % (3-14); Neutrophils Absolute Auto 1700 /uL (1500-7000); Neutrophils Percent Auto 39.1 % (50-75); Platelet Count 200 X10^3/uL (150-400); Red Blood Cell Count 4.41 X10^6/uL (4.0-5.2); Red Cell Distribution Width 23.5 % (11.6-14.8); White Blood Cell Count 4.3 X10^3/uL (4.5-11.0)
[2023-11-27 08:29] LABS: Alanine Aminotransferase 14 IU/L (<35); Albumin 4.1 g/dL (3.5-5.0); Albumin Globulin Ratio 1.8 (1.0-2.8); Alkaline Phosphatase 46 U/L (38-126); Aspartate Aminotransferase 23 IU/L (14-36); BUN Creatinine Ratio 15.8 (6-22); Bilirubin Total 0.5 mg/dL (0.2-1.3); Blood Urea Nitrogen 12 mg/dL (7-17); Calcium 8.8 mg/dL (8.4-10.2); Carbon Dioxide 26 mmol/L (22-32); Chloride 108 mmol/L (98-107); Estimated Glomerular Filt Rate > 60 mL/min (>60); Globulin 2.3 g/dL (1.7-4.1); Glucose 94 mg/dL (80-110); HEMOLYSIS < 15 (0-50); Iron 146 ug/dL (37-170); Potassium 4.9 mmol/L (3.4-5.1); Sodium 138 mmol/L (137-145); Total Protein 6.4 g/dL (6.3-8.2)
[2023-11-27 08:41] LABS: Percent Iron Saturation 58 % (15-50); Total Iron Binding Capacity 252 ug/dL (265-497); Transferrin 195 mg/dL (206-381)
[2023-11-27 08:47] LABS: Vitamin D 25 Hydroxy (D3) 50.7 ng/mL (30.0-100.0)
[2023-11-27 09:27] LABS: Free T4, Direct Thyroxine 1.14 ng/dL (0.78-2.19)
[2023-11-27 09:35] LABS: Folate > 20.0 ng/mL (2.76-20.0); Vitamin B12 368 pg/mL (239-931)
[2023-11-27 13:19] LABS: Anisocytosis 2+; Macrocytosis 1+; Microcytosis 1+; Spherocytes 1+
[2023-11-27 13:20] LABS: Hypochromasia 1+; Stomatocytes 2+; Target Cells 3+
== END ==
PROVIDERS: PCP Nurse Practitioner Family; Referring Provider Nurse Practitioner Family; Visit Provider Nurse Practitioner Family
DX: E03.9 Hypothyroidism, unspecified (principal); E55.9 Vitamin D deficiency, unspecified; D64.9 Anemia, unspecified; E78.5 Hyperlipidemia, unspecified
CPT/HCPCS: 36415; 80053; 82306; 82607; 82746; 83540; 83550; 84439; 84443; 85025